=== PATIENT | male | born 1955 | race Caucasian/White ===

== ENCOUNTER 2021-08-26 10:25 | Emergency (ER) | payer MEDICARE, OTHER ==
[2021-08-26 11:21] LABS: HEMOGLOBIN 15.2 gm/dl (14.0-17.5); RED BLOOD COUNT 5.18 M/UL (4.20-5.50); WHITE BLOOD COUNT 7.1 K/UL (4.5-11.0)
[2021-08-26 11:40] LABS: BUN/CREATININE RATIO 13 (0-10)
[2021-08-26] MEDS ORDERED: DOXYCYCLINE HY100 MG PO (11:45)
== END 2021-08-26 12:25 | disposition home or self-care (01) ==
LOC: ER1 10:25
PROVIDERS: Physician Assistant
DX: E11.621 Type 2 diabetes mellitus with foot ulcer (principal); L97.519 Non-pressure chronic ulcer of other part of right foot with unspecified severity; E11.40 Type 2 diabetes mellitus with diabetic neuropathy, unspecified; I48.91 Unspecified atrial fibrillation
CPT/HCPCS: 73620; 80053; 85025; 85652; 86140; 99283